=== PATIENT | male | born 1975 | race Caucasian/White ===

== ENCOUNTER 2025-04-03 19:13 | Emergency (ER) | payer BC, SELFPAY ==
[2025-04-03 19:17] VITALS: BP 179/84; PULSE 75; TEMP 38.5; O2SAT 100; BMI 22.6
--- NOTE | 2025-04-03 19:30 | ED_ITS ---
Documented by User: [email or web address] Nunez 04/03/25 22:39 HPI HPI - General Adult General Chief complaint: Upper Respiratory Infection Stated complaint: SORE THROAT Time Seen by Provider: 04/03/25 19:20 Source: patient Mode of arrival: walk-in Limitations: no limitations History of Present Illness HPI narrative: Patient is a 49-year-old that presents with complaints of 5 to 6 days of sore throat. He denies any sick contacts. He states the pain with swallowing became worse yesterday, he has been doing home remedies up until today. He states he has felt some chills and feverish within the last day or so but did not take his temperature. He states he has been to the dentist within the last 4 months. Related Data Previous Rx's ?Medication ?Instructions ?Recorded amoxicillin 875 mg-potassium 1 tab PO BID 10 days #20 tabs 04/03/25 clavulanate 125 mg tablet Allergies Allergy/AdvReac Type Severity Reaction Status Date / Time No Known Drug Allergies Allergy Verified 04/03/25 19:20 Opioid HPI Opioid Management Most Recent Opioid Data: Last Pain Scale 6 Today, 20:25 Last ED Pain Assessment Today, 20:25 Last MAR Pain Assessment Today, 19:55 Review of Systems ROS Status of ROS 10 or more systems reviewed and unremark able except as noted in history and below PFSH PFSH Social History Little interest or pleasure in doing things: not at all Feeling down, depressed, or hopeless: not at all Exam Narrative Exam Narrative: General: No distress, age-appropriate Skin: Warm, dry, no pallor. No rash. Head: Normocephalic, atraumatic. Neck: Supple, non-tender. Eye: Pupils are equal, round and EOMI. No scleral icterus. Ears, Nose, Mouth, and Throat: No nasal mucosal hypertrophy. Oral mucosa is moist, posterior oropharynx erythema, uvula mildly deviated to the left, right tonsil swollen with exudate present Cardiovascular: Regular Rate and Rhythm without murmur, gallop or rub. Respiratory: No accessory muscle use or respiratory distress. Hot potatoe voice but no drooling or tripoding. Lungs are clear to auscultation, no wheezing, rales or rhonchi Musculoskeletal: Full ROM of all extremities, no calf or popliteal tenderness Neurological: A&O x4. No cranial nerve dysfunction observed. No truncal ataxia. Moves all extremities. Sensation intact. Psychiatric: Cooperative and interactive. Normal mood and affect. Constitutional Vital Signs, click to edit/add: Last Vital Signs Temp 101.3 F H 04/03/25 19:17 Pulse 68 04/03/25 22:26 Resp 18 04/03/25 22:26 BP 126/85 04/03/25 22:26 Pulse Ox 98 04/03/25 22:26 O2 Del Method Room Air 04/03/25 22:26 Course Vital Signs Vital signs: Vital Signs Temperature 101.3 F H 04/03/25 19:17 Pulse Rate 75 04/03/25 19:17 Respiratory Rate 18 04/03/25 19:17 Blood Pressure 179/84 H 04/03/25 19:17 Pulse Oximetry 100 04/03/25 19:17 Oxygen Delivery Method Room Air 04/03/25 19:17 Temperature 101.3 F H 04/03/25 19:17 Pulse Rate 68 04/03/25 22:26 Respiratory Rate 18 04/03/25 22:26 Blood Pressure 126/85 04/03/25 22:26 Pulse Oximetry 98 04/03/25 22:26 Oxygen Delivery Method Room Air 04/03/25 22:26 Medical Decision Making MDM Narrative Medical decision making narrative: 49-year-old male presenting with 5 to 6 days of worsening sore throat, fever, and dysphagia. Exam concerning for peritonsillar abscess; rapid strep negative. Labs notable for WBC 14.[address] neck revealed acute tonsillitis with a 1.8 x 1.8 cm right peritonsillar abscess, using left word airway deviation, with adjacent phlegmon. On arrival patient is in no respiratory distress, no stridor, no drooling, no tripoding. He does have a mild hot potato voice and is febrile at 101.3. 98% O2 saturation on room air. IV established. CBC, BMP, CT neck soft tissue's with contrast ordered. 3 g Unasyn IV and 125 mg Solu-Medrol ordered. Patient was seen in conjunction with Dr. Anton and bedside aspiration was attempted by him with minimal to no purulent return. On reexamination after procedure patient noted improvement in pain, swallowing, and phonation; voice is starting to normalize and patient tolerated oral intake. No evidence of airway compromise during observation?no drooling, stridor, respiratory distress, or oxygen requirement. After reassessment the patient remained clinically stable with improved symptoms and intact airway. Given clinical improvement, stable airway, and ability to tolerate p.o., patient appropriate for outpatient management. He he was discharged on Augmentin 875 mg twice daily x 10 days with urgent ENT follow-up for definitive management and strict return precautions for any worsening airway symptoms or inability tolerate oral intake. Patient voiced understanding and was discharged in stable condition. Differential Diagnosis Differential Diagnosis: Peritonsillar abscess, tonsillitis, strep pharyngitis Lab Data Lab results reviewed: Yes I reviewed the patient's lab results Labs: Lab Results 04/03/25 04/03/25 Range/Units 19:15 19:30 WBC 14.3 H (4.0-11.0) 10^3/uL RBC 4.50 L (4.70-6.10) 10^6/uL Hgb 14.7 (14.0-18.0) g/dL Hct 42.8 (42.0-54.0) % MCV 95.1 H (80.0-94.0) fL MCH 32.7 (25.9-34.0) pg MCHC 34.3 (29.9-35.2) g/dL RDW 11.9 (11.0-15.0) % Plt Count 217 (150-450) 10^3/uL MPV 10.0 (9.5-13.5) fL Seg Neuts % (Manual) 81.0 H (43.0-75.0) Lymphocytes % (Manual) 8.0 L (20.5-60.0) % Monocytes % (Manual) 11.0 (1.7-12.0) % Eosinophils % (Manual) 0.0 L (0.9-7.0) % Basophils % (Manual) 0.0 L (0.2-2.0) % Neutrophils # (Manual) 11.58 H (1.4-6.5) 10^3/uL Lymphocytes # (Manual) 1.14 L (1.20-3.80) 10^3/uL Monocytes # (Manual) 1.57 H (0.30-0.80) 10^3/uL Eosinophils # (Manual) 0.00 (0.00-0.70) 10^3/uL Basophils # (Manual) 0.00 (0.00-0.10) 10^3/uL Sodium 135 L (136-145) mmol/L Potassium 3.5 (3.5-5.1) mmol/L Chloride 98 (98-107) mmol/L Carbon Dioxide 25.6 (21.0-32.0) mmol/L Anion Gap 14.9 BUN 2.0 L (7.0-18.0) mg/dL Creatinine 0.85 (0.70-1.30) mg/dL Est GFR ( Amer) >60 (>=60 mL/min/1.73m^2) Est GFR (Non-Af Amer) >60 (>=60 mL/min/1.73m^2) BUN/Creatinine Ratio 2.4 Glucose 112 H (74-106) mg/dL Calcium 8.8 (8.5-10.1) mg/dL Streptococcus Screen Negative Imaging Data CT neck soft tissue's with contrast: Attestation: I have reviewed the pertinent imaging results. Radiologist's impression: Findings consistent with tonsillitis with a large right peritonsillar abscess. The palate teen tonsils are enlarged consistent with tonsillitis. There is a large right peritonsillar abscess measuring 1.8 x 1.8 cm. There is significant mass effect on the airway which is deviated to the left. Adjacent less well- defined areas of low-attenuation may be related to areas of phlegmon or perhaps poorly defined abscess. Bilateral maxillary sinus mucosal thickening is noted. Scattered ethmoid air cell mucosal thickening is noted as well. The mastoids are clear. Discharge Plan Discharge Chief Complaint: Upper Respiratory Infection Clinical Impression: Abscess, peritonsillar Patient Disposition: Home, Self-Care Time of Disposition Decision: 21:57 Condition: Good Mode of Transportation: Private Vehicle Prescriptions / Home Meds: New amoxicillin-pot clavulanate 875-125 mg tablet 1 tab PO BID 10 Days Qty: 20 0RF Print Language: Slovak Instructions: Peritonsillar Abscess (ED) Additional Instructions: 1. Augmentin (amoxicillin-clavulanate) * Take 1 tablet twice a day for 10 days * Take with food to reduce stomach upset * Finish the entire course?even if you start feeling better 2. Pain & Symptom Control * You may use acetaminophen (Tylenol) or ibuprofen (Advil/Motrin) as needed for pain or fever * Warm saltwater gargles several times a day * Drink plenty of fluids * Avoid alcohol and smoking while recovering Follow-Up Instructions ENT Referral: You have been referred to an Ear, Nose, and Throat specialist for close follow- up and possible drainage if symptoms return or worsen. Call the ENT clinic within 1?2 days to schedule an appointment. What to Expect * Your throat pain should gradually improve over the next 24?48 hours * Mild soreness or difficulty swallowing may continue for a few days * The steroid given in the ER should help reduce swelling for the next 24 hours L Return to the Emergency Department Immediately If You Develop: - Worsening throat pain - Difficulty breathing or swallowing saliva - Drooling or inability to drink fluids - Increasing swelling on one side of the throat or neck - Fever over 101?F despite medication - Muffled (?hot potato?) voice that worsens - Dehydration (dark urine, dizziness, very dry mouth) - Any new or severe symptoms that concern you General Care * Rest and stay well-hydrated * Soft foods if swallowing is painful * Avoid sharing drinks/utensils to prevent spread if infectious Referrals: BRAD PINEDA [Physician, Family Practice] - 1 week Timmis,Shilpa, MD [Physician, Ear, Nose, Throat] - As soon as possible Discharge Date/Time: 04/03/25 22:28 Documented by User: Michele Anton DO 04/03/25 22:53 HPI HPI - General Adult General Chief complaint: Upper Respiratory Infection Stated complaint: SORE THROAT Time Seen by Provider: 04/03/25 19:20 Related Data Previous Rx's ?Medication ?Instructions ?Recorded amoxicillin 875 mg-potassium 1 tab PO BID 10 days #20 tabs 04/03/25 clavulanate 125 mg tablet Allergies Allergy/AdvReac Type Severity Reaction Status Date / Time No Known Drug Allergies Allergy Verified 04/03/25 19:20 Opioid HPI Opioid Management Most Recent Opioid Data: Last Pain Scale 6 Today, 20:25 Last ED Pain Assessment Today, 20:25 Last MAR Pain Assessment Today, 19:55 PFSH PFSH Social History Little interest or pleasure in doing things: not at all Feeling down, depressed, or hopeless: not at all Exam Narrative Exam Narrative: General: Non-toxic appearing. He is smiling and appears well. No distress, age-appropriate Skin: Warm, dry, no pallor. No rash. Head: Normocephalic, atraumatic. Neck: Supple, non-tender. Eye: Pupils are equal, round and EOMI. No scleral icterus. Ears, Nose, Mouth, and Throat: No nasal mucosal hypertrophy. Oral mucosa is moist, posterior oropharynx erythema, uvula mildly deviated to the left, right tonsil swollen with exudate present. There is a small left sided peritonsillar abscess. No trismus. No neck swelling. Cardiovascular: Regular Rate and Rhythm without murmur, gallop or rub. Respiratory: Breathing comfortably on room air. No accessory muscle use or respiratory distress. Hot potato voice but no drooling or tripoding. Lungs are clear to auscultation, no wheezing, rales or rhonchi Musculoskeletal: Full ROM of all extremities, no calf or popliteal tenderness Neurological: A&O x4. No cranial nerve dysfunction observed. No truncal ataxia. Moves all extremities. Sensation intact. Psychiatric: Cooperative and interactive. Normal mood and affect. Constitutional Vital Signs, click to edit/add: Last Vital Signs Temp 101.3 F H 04/03/25 19:17 Pulse 68 04/03/25 22:26 Resp 18 04/03/25 22:26 BP 126/85 04/03/25 22:26 Pulse Ox 98 04/03/25 22:26 O2 Del Method Room Air 04/03/25 22:26 Course Vital Signs Vital signs: Vital Signs Temperature 101.3 F H 04/03/25 19:17 Pulse Rate 75 04/03/25 19:17 Respiratory Rate 18 04/03/25 19:17 Blood Pressure 179/84 H 04/03/25 19:17 Pulse Oximetry 100 04/03/25 19:17 Oxygen Delivery Method Room Air 04/03/25 19:17 Temperature 101.3 F H 04/03/25 19:17 Pulse Rate 68 04/03/25 22:26 Respiratory Rate 18 04/03/25 22:26 Blood Pressure 126/85 04/03/25 22:26 Pulse Oximetry 98 04/03/25 22:26 Oxygen Delivery Method Room Air 04/03/25 22:26 Medical Decision Making [facility] Narrative Medical decision making narrative: 49-year-old male presenting with 5 to 6 days of worsening sore throat, fever, and dysphagia. Exam concerning for peritonsillar abscess; rapid strep negative. Labs notable for WBC 14.[address] neck revealed acute tonsillitis with a 1.8 x 1.8 cm right peritonsillar abscess, using left word airway deviation, with adjacent phlegmon. On arrival patient is in no respiratory distress, no stridor, no drooling, no tripoding. He does have a mild hot potato voice and is febrile at 101.3. 98% O2 saturation on room air. IV established. CBC, BMP, CT neck soft tissue's with contrast ordered. 3 g Unasyn IV and 125 mg Solu-Medrol ordered. Patient was seen in conjunction with Dr. Anton and bedside aspiration was attempted by him with minimal to no purulent return. On reexamination after procedure patient noted improvement in pain, swallowing, and phonation; voice is starting to normalize and patient tolerated oral intake. No evidence of airway compromise during observation?no drooling, stridor, respiratory distress, or oxygen requirement. After reassessment the patient remained clinically stable with improved symptoms and intact airway. Given clinical improvement, stable airway, and ability to tolerate p.o., patient appropriate for outpatient management. He he was discharged on Augmentin 875 mg twice daily x 10 days with urgent ENT follow-up for definitive management and strict return precautions for any worsening airway symptoms or inability tolerate oral intake. Patient voiced understanding and was discharged in stable condition. ATTENDING ADDENDUM: Dr. Anton Patient seen and evaluated at bedside with midlevel provider. Agree with plan. Patient presents with a 5-day history of sore throat, worse on the right side. On examination, patient has a mildly muffled voice and a small peritonsillar abscess on the right. He is breathing comfortably without drooling or evidence of any respiratory compromise. There is no trismus and he is protecting his airway adequately. He is overall well-appearing. CT of the neck demonstrated a 1.8 x 1.8 cm peritonsillar abscess. This hospital has no ENT coverage. I did perform a bedside needle aspiration and was only able to obtain < 1cc of purulent material. After observing the patient in the ED for an additional hour, he states he feels symptomatically improved. He has no bleeding or evidence of procedural complications. The patient was given a prescription for Augmentin x 10 days. I instructed the patient to make an appoint with his PCP in the next 24 to 48 hours for checkup. He is also given information for the ENT clinic, Dr. Ramírez, to try to make an appointment for checkup. Strict return precautions were given including inability to open his mouth, trouble breathing or swallowing. Patient understands and agrees with the plan. FINAL IMPRESSION: #Acute right peritonsillar abscess s/p needle aspiration DISPOSITION: Discharge home CONDITION: Fair Lab Data Labs: Lab Results 04/03/25 04/03/25 Range/Units 19:15 19:30 WBC 14.3 H (4.0-11.0) 10^3/uL RBC 4.50 L (4.70-6.10) 10^6/uL Hgb 14.7 (14.0-18.0) g/dL Hct 42.8 (42.0-54.0) % MCV 95.1 H (80.0-94.0) fL MCH 32.7 (25.9-34.0) pg MCHC 34.3 (29.9-35.2) g/dL RDW 11.9 (11.0-15.0) % Plt Count 217 (150-450) 10^3/uL MPV 10.0 (9.5-13.5) fL Seg Neuts % (Manual) 81.0 H (43.0-75.0) Lymphocytes % (Manual) 8.0 L (20.5-60.0) % Monocytes % (Manual) 11.0 (1.7-12.0) % Eosinophils % (Manual) 0.0 L (0.9-7.0) % Basophils % (Manual) 0.0 L (0.2-2.0) % Neutrophils # (Manual) 11.58 H (1.4-6.5) 10^3/uL Lymphocytes # (Manual) 1.14 L (1.20-3.80) 10^3/uL Monocytes # (Manual) 1.57 H (0.30-0.80) 10^3/uL Eosinophils # (Manual) 0.00 (0.00-0.70) 10^3/uL Basophils # (Manual) 0.00 (0.00-0.10) 10^3/uL Sodium 135 L (136-145) mmol/L Potassium 3.5 (3.5-5.1) mmol/L Chloride 98 (98-107) mmol/L Carbon Dioxide 25.6 (21.0-32.0) mmol/L Anion Gap 14.9 BUN 2.0 L (7.0-18.0) mg/dL Creatinine 0.85 (0.70-1.30) mg/dL Est GFR ( Amer) >60 (>=60 mL/min/1.73m^2) Est GFR (Non-Af Amer) >60 (>=60 mL/min/1.73m^2) BUN/Creatinine Ratio 2.4 Glucose 112 H (74-106) mg/dL Calcium 8.8 (8.5-10.1) mg/dL Streptococcus Screen Negative Discharge Plan Discharge Chief Complaint: Upper Respiratory Infection Clinical Impression: Abscess, peritonsillar Patient Disposition: Home, Self-Care Time of Disposition Decision: 21:57 Condition: Good Mode of Transportation: Private Vehicle Prescriptions / Home Meds: New amoxicillin-pot clavulanate 875-125 mg tablet 1 tab PO BID 10 Days Qty: 20 0RF Print Language: Slovak Instructions: Peritonsillar Abscess (ED) Additional Instructions: 1. Augmentin (amoxicillin-clavulanate) * Take 1 tablet twice a day for 10 days * Take with food to reduce stomach upset * Finish the entire course?even if you start feeling better 2. Pain & Symptom Control * You may use acetaminophen (Tylenol) or ibuprofen (Advil/Motrin) as needed for pain or fever * Warm saltwater gargles several times a day * Drink plenty of fluids * Avoid alcohol and smoking while recovering Follow-Up Instructions ENT Referral: You have been referred to an Ear, Nose, and Throat specialist for close follow- up and possible drainage if symptoms return or worsen. Call the ENT clinic within 1?2 days to schedule an appointment. What to Expect * Your throat pain should gradually improve over the next 24?48 hours * Mild soreness or difficulty swallowing may continue for a few days * The steroid given in the ER should help reduce swelling for the next 24 hours Return to the Emergency Department Immediately If You Develop: - Worsening throat pain - Difficulty breathing or swallowing saliva - Drooling or inability to drink fluids - Increasing swelling on one side of the throat or neck - Fever over 101?F despite medication - Muffled (?hot potato?) voice that worsens - Dehydration (dark urine, dizziness, very dry mouth) - Any new or severe symptoms that concern you General Care * Rest and stay well-hydrated * Soft foods if swallowing is painful * Avoid sharing drinks/utensils to prevent spread if infectious Referrals: BRAD PINEDA [Physician, Family Practice] - 1 week Shilpa Ramírez MD [Physician, Ear, Nose, Throat] - As soon as possible Discharge Date/Time: 04/03/25 22:28
[2025-04-03] MEDS: ACETAMINOPHEN 160 MG/5 ML ORAL.SUSP 1000 MG PO (19:55)
[2025-04-03 20:00] LABS: Hematocrit 42.8 % (42.0-54.0); Hemoglobin 14.7 g/dL (14.0-18.0); Mean Corpuscular HGB Conc 34.3 g/dL (29.9-35.2); Mean Corpuscular Hemoglobin 32.7 pg (25.9-34.0); Mean Corpuscular Volume 95.1 fL (80.0-94.0); Platelet Count 217 10^3/uL (150-450); Red Blood Count 4.50 10^6/uL (4.70-6.10); White Blood Count 14.3 10^3/uL (4.0-11.0)
[2025-04-03 20:03] LABS: Anion Gap 14.9; Blood Urea Nitrogen 2.0 mg/dL (7.0-18.0); Calcium 8.8 mg/dL (8.5-10.1); Carbon Dioxide 25.6 mmol/L (21.0-32.0); Chloride 98 mmol/L (98-107); Estimated GFR (African America >60 (>=60 mL/min/1.73m^2); Estimated GFR (Non-African Ame >60 (>=60 mL/min/1.73m^2); Glucose 112 mg/dL (74-106); Potassium 3.5 mmol/L (3.5-5.1); Sodium 135 mmol/L (136-145)
[2025-04-03] MEDS: METHYLPREDNISOLONE SOD SUCC PF 125 MG/2 ML VIAL IVP (20:17)
[2025-04-03] MEDS: AMPICILLIN SODIUM/SULBACTAM NA 3 GM in 0.9 % SODIUM CHLORIDE 100 ML IV (20:17)
[2025-04-03 20:28] LABS: Basophils Abs Manual 0.00 10^3/uL (0.00-0.10); Basophils Percent Manual 0.0 % (0.2-2.0); Eosinophils Absolute Manual 0.00 10^3/uL (0.00-0.70); Eosinophils Percent Manual 0.0 % (0.9-7.0); Lymphocytes Absolute Manual 1.14 10^3/uL (1.20-3.80); Lymphocytes Percent Manual 8.0 % (20.5-60.0); Monocytes Absolute Manual 1.57 10^3/uL (0.30-0.80); Monocytes Percent Manual 11.0 % (1.7-12.0); Segmented Neut Absolute Manual 11.58 10^3/uL (1.4-6.5); Segmented Neutrophils % Manual 81.0 (43.0-75.0)
[2025-04-03] MEDS: BENZOCAINE 20% SPRAY 57 GM SPRAY CAN TOPICAL (21:16)
[2025-04-03 21:19] VITALS: BP 139/79; PULSE 77; O2SAT 98
[2025-04-03 22:26] VITALS: BP 126/85; PULSE 68; O2SAT 98
== END 2025-04-03 22:28 | disposition home or self-care (01) ==
PROVIDERS: Physician Assistant; Emergency Provider Student in an Organized Health Care Education/Training Program; PCP Student in an Organized Health Care Education/Training Program
DX: J36 Peritonsillar abscess (principal); R50.9 Fever, unspecified
CPT/HCPCS: 10160; 36415; 70491; 80048; 85007; 85027; 87070; 87880; 96365; 96375; 99285; J0295; J2919; Q9967